=== PATIENT | male | born 1960 | race Caucasian/White ===

== ENCOUNTER → 2019-06-09 14:12 | Outpatient (CLI) | payer OTHER, SELFPAY ==
--- NOTE | 2019-06-09 14:14 | DI.MRI.S_ITS ---
PROCEDURE: MR LUMBAR SPINE WO CON INDICATIONS: low back pain TECHNIQUE: Noncontrast sagittal T1 spin echo and T2 fast echo, sagittal STIR, axial T1 and T2 fast spin echo through the lumbar spine. In cases with scoliosis, additional coronal T2 fast spin echo may be performed. COMPARISON: [facility], RG, SPINE LUMB 2 OR 3VW, 07/10/2006, 10:43. FINDINGS: Image quality: Excellent. Alignment and Curvature: There is normal bony alignment. Bone Marrow: Marrow is of normal overall signal. No acute vertebral body compression fractures. Spinal Cord: Conus medullaris terminates at the upper L1 level. Visualized cord demonstrates normal signal and size. Paraspinous Soft Tissues: No paravertebral masses. L1-L2: Congenital canal stenosis. Mild facet and ligamentum flavum hypertrophy. Mild epidural lipomatosis. Mild canal stenosis. No foraminal stenosis. L2-L3: Congenital canal stenosis. Mild disc height loss and desiccation. Mild diffuse disc bulge. Mild facet and ligamentum flavum hypertrophy. Mild epidural lipomatosis. Moderate canal stenosis. Mild bilateral foraminal stenosis. L3-L4: Congenital canal stenosis. Mild disc height loss and desiccation. Mild diffuse disc bulge. Mild facet and ligamentum flavum hypertrophy. Mild epidural lipomatosis. Severe canal stenosis. Mild foraminal stenosis bilaterally. L4-L5: Congenital canal stenosis. Mild disc height loss and desiccation. Mild diffuse disc bulge. Moderate facet and ligamentum flavum hypertrophy. Mild epidural lipomatosis. Severe canal stenosis. Mild bilateral foraminal stenosis. L5-S1: Congenital canal stenosis. Mild bilateral facet hypertrophy. Mild canal stenosis. Mild foraminal stenosis bilaterally. IMPRESSION: 1. Diffuse congenital canal stenosis with superimposed multilevel degenerative disc and facet disease, as well as ligamentum flavum hypertrophy and epidural lipomatosis. 2. Multilevel canal stenoses, worst at L3-L4 and L4-L5 where there is severe canal stenoses present. 3. Mild multilevel foraminal stenoses. Dictated by: Alexandria Steel M.D. on 06/09/2019 at 15:37 Approved by: Alexandria Steel M.D. on 06/09/2019 at 15:42
== END ==
PROVIDERS: Family Provider Family Medicine; PCP Family Medicine; Visit Provider Registered Nurse
DX: M54.17 Radiculopathy, lumbosacral region (principal); M48.061 Spinal stenosis, lumbar region without neurogenic claudication; Z98.1 Arthrodesis status
CPT/HCPCS: 72148

== ENCOUNTER → 2019-06-12 14:44 | Outpatient (CLI) | payer OTHER, SELFPAY ==
--- NOTE | 2019-06-12 14:48 | DI.RAD.S_ITS ---
PROCEDURE: XR LUMBAR SPINE 2-3V INDICATIONS: lumbosacral radiculopathy. TECHNIQUE: 3 views of the lumbar spine were acquired. COMPARISON: None. FINDINGS: Bones: 5 [id number] vertebrae are present. Vestigial ribs are present at T12. There is normal bony alignment. No vertebral body compression fractures. No suspicious bony lesions. The inferior aspect of the thoracic spinal fixation hardware is intact. Soft tissues: Overlying bowel gas pattern is normal. No suspicious soft tissue calcifications. IMPRESSION: No radiographic abnormalities. Postoperative change. Dictated by: Maida Tavarez M.D. on 06/12/2019 at 16:56 Approved by: Maida Tavarez M.D. on 06/12/2019 at 16:57
== END ==
PROVIDERS: PCP Family Medicine; Visit Provider Physical Medicine & Rehabilitation
DX: M54.17 Radiculopathy, lumbosacral region (principal); Z98.1 Arthrodesis status
CPT/HCPCS: 72100

== ENCOUNTER 2019-08-14 13:53 | Outpatient (CLI) | payer OTHER, SELFPAY ==
[2019-08-14] VITALS (8 sets, daily range): BP systolic 119–142; BP diastolic 71–87; PULSE 54–66; RESP 15–18; TEMP 36.3; O2SAT 95–99
--- NOTE | 2019-08-14 13:53 | DI.RAD.S_ITS ---
PROCEDURE: PAIN L/S TRANSFORAMINAL INJECT INDICATIONS: RADICULOPATHY FINDINGS: Fluoroscopic spot filming was performed to verify placement of spinal needles at the L4-L5 level(s), as labeled on the films. Appropriate location(s) of the needle tip(s) was confirmed by injection of iodinated contrast. IMPRESSION: Fluoroscopy for pain management. Dictated by: Rico Warren M.D. on 08/14/2019 at 17:37 Approved by: Rico Warren M.D. on 08/14/2019 at 17:37
--- NOTE | 2019-08-14 14:38 | P.PCN_ITS ---
Procedures Date/Time Date of procedure: 08/14/19 Time of procedure: 14:38 General Procedure description: PROVIDER: Oscar Gomez DO Operative Note PREOP DIAGNOSIS 1. HNP WITH RADICULAR FEATURES, 2. MULTILEVEL CENTRAL STENOSIS, POST OP DIAGNOSIS 1. HNP WITH RADICULAR FEATURES, 2. MULTILEVEL CENTRAL STENOSIS PROCEDURES 1. FLUORSCOPICALLY GUIDED CONTRAST CONTROLLED INTERLAMINAR EPIDURAL STEROID INJECTION -L4/5 PHYSICIAN: Oscar Gomez DO INDICATIONs: Cuate is referred by Dr. Dunn for treatment of Bilateral Foraminal Stenosis R>L LE symptoms. FINDINGS Multilevel Central Spinal Stenosis with Nerve Root Compression DESCRIPTION OF PROCEDURE Fluoroscopically guided, contrast-controlled L4/5 translaminar epidural steroid injection. Following review of allergy and review of potential side effects and complications, including, but not necessarily limited to, infection, allergic reaction, local tissue breakdown, temporary as well as permanent nerve injury, paralysis, stroke and possible , the patient indicated that the patient understood and agreed to proceed. An informed consent document was signed by the patient, witnessed by a nurse, and placed in the patient's chart. Additionally, other treatment options including modalities, medications, and physical therapy were reviewed with the patient. After review of previous anaesthesic history and IV conscious sedation the patient was deemed safe to proceed with todays procedure with IV conscious sedation as ASA class II designation. Safety time-out was performed to confirm patient ID, procedure to be performed and site of procedure. IV sedation was accomplished with a combination of 1mg of Versed and 50mcg was administered by the RN after DO order, titrated to patient comfort during the course of the procedure while the patient remained responsive to all verbal commands In the prone position, following sterile prep and drape of the lumbar region, the L4/5 translaminar space was identified fluoroscopically. The skin was anesthetized via a 25-gauge, 1.5-inch needle with 1% lidocaine solution. At this point, a 22-gauge short bevel spinal needle was atraumatically introduced and advanced under fluoroscopic guidance into the region of the L4/5 translaminar space. Depth was confirmed on lateral view. Radiological data, including multiple fluoroscopic views of the lumbar spine, reveal a spinal needle at the L4/5 translaminar space. Lateral views then show placement of the needle in the epidural space. Subsequent views show contrast material flowing superiorly and inferiorly in the epidural space. No vascular or intrathecal uptake is observed. At this point, using loss of resistance technique with saline and air, the epidural space was entered. This was confirmed following negative aspiration with injection of approximately 1.5 cc of Isovue 200, showing excellent epidural flow without vascular or intrathecal uptake. At this point, 1 cc of 1% lidocaine solution combined with 3cc or 20mg of dexamethasone and 6mg beta methasone was injected without incident. The patient tolerated the procedure well without signs or symptoms of complications prior to transfer to the recovery area continued monitoring without incident. The patient was then transferred to the recovery area where they were observed for an appropriate period of time after the injection. The patient reported a VAS score of 6 prior to the procedure and a post- procedure VAS of 0. Total Fluoroscopy Time: 11.8 seconds, 8.99 mGy Total Conscious Sedation Time: 24min POST OP INSTRUCTIONS The patient was provided a Pain Log to continue to record their response to the target-specific procedure prior to follow-up visit with their referring physician. Additionally, specific post-injection care instructions and a contact number to our office were provided if concerns arise regarding possible complications associated with the procedure are suspected. Oscar Gomez, Complications: none
--- NOTE | 2019-08-14 14:42 | P.PCN_ITS ---
Procedures Date/Time Date of procedure: 08/14/19 Time of procedure: 15:07 General Procedure description: PREOP DIAGNOSIS 1. FORMAINAL STENOSIS WITH LE SYMPTOMS POST OP DIAGNOSIS 1. FORMAINAL STENOSIS WITH LE SYMPTOMS PROCEDURES 1. FLUOROSCOPICALLY GUIDED CONTRAST CONTROLLED TRANSFORAMINAL EPIDURAL STEROID INJECTION - RIGHT L4/5 TFESI PHYSICIAN: Oscar Gomez DO INDICATIONS: Cuate is referred by for treatment of Foraminal Stenosis with Right LE Symptoms FINDINGS Foraminal Nerve Root Compression secondary to disc disease and facet hypertrophy DESCRIPTION OF PROCEDURE: Following review of allergy and review of potential side effects and complications, including, but not necessarily limited to, infection, allergic reaction, local tissue breakdown, stroke, temporary or permanent nerve injury, paralysis, and possible , the patient indicated that the patient understood and agreed to proceed. An informed consent document was signed by the patient, witnessed by a nurse, and placed in the patient's chart. Additionally, other treatment options including medications, modalities, and physical therapy were reviewed with the patient. After review of previous anaesthesic history and IV conscious sedation the patient was deemed safe to proceed with todays procedure with IV conscious sedation as ASA class II designation. Safety time-out was performed to confirm patient ID, procedure to be performed and site of procedure. IV sedation was accomplished with a combination of 3mg of Versed and 50mcg of Fentanyl was administered by the RN after DO order, titrated to patient comfort during the course of the procedure while the patient remained responsive to all verbal commands In the prone position following sterile prep and drape of the lumbar region, the Right L4/5 posterior neuroforamen was identified fluoroscopically. The skin was anesthetized via a 25-gauge 1.5-inch needle with 1% lidocaine solution. At this point, a 25-gauge 3.5-inch spinal needle was atraumatically introduced and advanced under fluoroscopic guidance through the posterior Right L4/5 neuroforamen to approximately the anterior aspect of the canal. Depth was confirmed on lateral view. Following negative aspiration, injection of approximately 1.5 cc of Isovue 200 under live fluoroscopy in the AP view confirmed excellent flow along the nerve root, into the epidural space without vascular or intrathecal uptake observed Radiological data, including multiple fluoroscopic views of the lumbosacral spine, reveal a spinal needle at the right L4/5 posterior neuroforamen. Subsequent views show flow of contrast material flowing superiorly and inferiorly along the nerve root confirming epidural flow. Subsequently, a test dose of 1.5 cc of 1% lidocaine solution was administered and patient was observed for two minutes for signs or symptoms of complications, including abdominal pain, shortness of breath, bilateral upper or lower extremity weakness, nausea and vomiting, prior to steroid injection. At this point, a total of 3cc or 20mg of dexamethasone and 6mg of betamethasone was injected without incident. The procedure tolerated the procedure well without signs or symptoms of complications prior to transfer to the recovery area continued monitoring without incident.The patient was then transferred to the recovery area where they were observed for an appropriate time after the injection. The patient reported a VAS score of 7 prior to the procedure and a post- procedure VAS of 0. Total Fluoroscopy Time: 20.9 seconds Total Conscious Sedation Time: 24min POST OP INSTRUCTIONS The patient was provided a Pain Log to continue to record their response to the target-specific procedure prior to follow-up visit with their referring physician. Additionally, specific post-injection care instructions and a contact number to our office were provided if concerns arise regarding possible complications associated with the procedure are suspected. Oscar Gomez, Complications: none
[2019-08-14] MEDS: MIDAZOLAM 5 MG/5 ML VIAL IV (14:48)
[2019-08-14] MEDS: fentaNYL 100 MCG/2 ML INJ 50 MCG IV (14:49)
[2019-08-14] MEDS: BETAMETHASONE 30 MG/5 ML MDV 6 MG INJ (14:55)
[2019-08-14] MEDS: BUPIVACAINE 0.25% (PF) VIAL 2 ML INJ (14:56)
[2019-08-14] MEDS: IOPAMIDOL 15 ML VIAL 3 ML INJ (14:56)
[2019-08-14] MEDS: DEXAMETHASONE 10 MG/ML VIAL 20 MG INJ (14:56)
--- NOTE | 2019-08-14 15:02 | PC.NURSE ---
ASSISTING PT OFF TABLE AND TRANSPORTING TO POST PROC AREA IN STABLE CONDITION. PASSING RN CARE OF PT OFF TO STU Carmona RN.
--- NOTE | 2019-08-14 17:25 | PC.NURSE ---
Late entry: Discharge note--patient arrived for post procedure monitoring awake and alert. VSS and O2 sat WNL on RA. Pain level 0/10. Denied any unusual numbness or tingling to lower extremities. discharge instructions reviewed with patient and spouse with good understanding. discharged via w/c to car at 1528.
== END 2019-08-14 15:28 ==
LOC: RAD 13:53
PROVIDERS: PCP Family Medicine; Visit Provider Physical Medicine & Rehabilitation
DX: M48.061 Spinal stenosis, lumbar region without neurogenic claudication (principal); M51.16 Intervertebral disc disorders with radiculopathy, lumbar region
CPT/HCPCS: 64483; 99152; J0702; J1100; J2250; J3010

== ENCOUNTER → 2023-10-16 10:36 | Outpatient (CLI) | payer OTHER, SELFPAY ==
--- NOTE | 2023-10-16 10:39 | DI.RAD.S_ITS ---
PROCEDURE: XR LUMBAR SPINE MIN 4V INDICATIONS: BACK PAIN TECHNIQUE: 5 views of the lumbar spine were acquired, including bilateral oblique views. COMPARISON: [facility], CR, XR LUMBAR SPINE 2-3V, 06/12/2019, 14:47. FINDINGS: Bones: Thoracic posterior fixation hardware is partially visualized and appears intact. 5 nonrib-bearing vertebrae are present. There is normal bony alignment. No vertebral body compression fractures. No suspicious bony lesions. There is mild intervertebral disc space narrowing, osteophytosis and facet sclerosis. Soft tissues: Overlying bowel gas pattern is normal. Scattered atheromatous calcifications are present within the abdominal aorta. Oblique images: No pars defects. IMPRESSION: 1. Mild degenerative change. 2. Mild aortic atherosclerosis. 3. No acute compression deformities. Dictated by: Maida Tavarez M.D. on 10/16/2023 at 11:27 Approved by: Maida Tavarez M.D. on 10/16/2023 at 11:29
== END ==
LOC: RAD 10:38
PROVIDERS: PCP Family Medicine; Referring Provider Anesthesiology; Visit Provider Anesthesiology
DX: M47.26 Other spondylosis with radiculopathy, lumbar region (principal); I70.0 Atherosclerosis of aorta; Z98.1 Arthrodesis status
CPT/HCPCS: 72110

== ENCOUNTER 2023-10-24 14:21 | Outpatient (CLI) | payer OTHER, SELFPAY ==
[2023-10-24] VITALS (9 sets, daily range): BP systolic 112–136; BP diastolic 56–85; PULSE 75–82; RESP 18–24; TEMP 36.2; O2SAT 95–100
--- NOTE | 2023-10-24 14:22 | DI.RAD.S_ITS ---
PROCEDURE: PAIN L/S TRANSFORAMINAL INJECT INDICATIONS: RADICULOPATHY COMPARISON: [facility], , PAIN L/S TRANSFORAMINAL INJECT, 08/14/2019, 14:51. FINDINGS: Fluoroscopic spot filming was performed to verify placement of spinal needles at the left L3-4 level(s), as labeled on the films. Appropriate location(s) of the needle tip(s) was confirmed by injection of iodinated contrast. IMPRESSION: Fluoroscopic guidance utilized for a epidural steroid injection at L3-4. Dictated by: Puneet Powell M.D. on 10/24/2023 at 17:13 Approved by: Puneet Powell M.D. on 10/24/2023 at 17:13
[2023-10-24] MEDS: MIDAZOLAM 2 MG/2 ML VIAL IV (15:08)
[2023-10-24] MEDS: DEXAMETHASONE 10 MG/ML VIAL INJ (15:10)
[2023-10-24] MEDS: iopamidoL 15 ML VIAL 3 ML INJ (15:11)
--- NOTE | 2023-10-24 16:20 | P.PCN_ITS ---
Date/Time/Diagnoses Date of procedure: 10/24/23 Time of procedure: 15:00 Procedure Notes Physician: Mariano Russo Total Fluoroscopy time (seconds): 34 Total sedation minutes: 30 Procedure in detail & Post-procedure care: Left L3-4 Transforaminal Epidural Steroid Injection Indications: Cuate is presenting for treatment of lumbar radiculopathy with low back and leg pain. Preoperative diagnosis: Lumbar radiculopathy Postoperative diagnosis: Same Focused Examination: Ax3 Mood and affect are normal Vital Signs: VSS ASA: 2 Consent: Following review of allergies and potential side effects/complications, including, but not necessarily limited to, infection, allergic reaction, local tissue breakdown, stroke, temporary or permanent nerve injury, paralysis, and possible , the patient indicated that they understood and agreed to proceed.? An informed consent document was signed by the patient, witnessed by a nurse and placed in the patient's chart.? Additionally, other treatment options including medications and physical therapy were reviewed with the patient. All questions were answered. Site was then marked. Anesthesia: After review of previous anesthetic history and IV conscious sedation, the patient was deemed safe to proceed with today's procedure with IV conscious sedation. IV sedation was accomplished with midazolam 2 mg administered by the RN after order by Dr. Russo. Sedation was titrated to patient comfort during the course of the procedure. Patient remained responsive to all verbal commands. Position: Prone Monitoring: NIBP, Pulse oximetry, 3 lead EKG Needle used: 22G 3.5 inch spinal needle Contrast: Isovue 300M Injectate: 10 mg Dexamethasone mixed with 1% lidocaine 1 ml and normal saline 1 mL Technique: The skin was prepped with chloraprep and draped in a sterile fashion. Time out was performed as per protocol. Oxygen applied via NC. Skin and subcutaneous structures of the needle entry site were infiltrated with 3mL of lidocaine 1%. Under fluoroscopic guidance, using an ipsilateral oblique view,?a 22 gauge 3.5 inch needle was advanced to the base of the L3?pedicle.? The needle was advanced to the superio-posterior aspect of the neural foramen however he was experiencing left lower extremity pain due to positioning. The pain was severe enough that he asked to abort the procedure. The needle was removed and he was assisted to the seated position. His pain resolved after this position change and he requested that we continue with the procedure. We repositioned the patient with additional support of the hips and left lower extremity. He tolerated this position well. Skin and subcutaneous structures of the needle entry site were infiltrated with 3mL of lidocaine 1%. Under fluoroscopic guidance, using an ipsilateral oblique view,?a 22 gauge 3.5 inch needle was advanced to the base of the L3?pedicle.? The needle was advanced to the superio-posterior aspect of the neural foramen under lateral view.? Oblique and AP views were rechecked. No paresthesias noted by the patient during needle placement. In AP view and utilizing real-time digital subtraction fluoroscopy, 2 ml contrast was slowly injected. Epidural spread was observed without evidence for intravascular nor intrathecal uptake. Contrast spread was seen craniocaudally. The above injectate was then administered without paresthesias and the needle was subsequently withdrawn. Band-Aids applied to injection sites. EBL: less than 1 ml Complications: None Post Procedure: Patient was taken to the recovery and monitored. The patient was provided a Pain Log to continue to record the patient's response to the target- specific procedure prior to the patient's follow-up visit with the referring physician. Patient was stable upon discharge. Detailed post procedure instructions were provided. Patient was asked to call in the event of worsening pain, fever, weakness, numbness or bladder or bowel incontinence.
== END 2023-10-24 15:47 | disposition home or self-care (01) ==
LOC: RAD 14:22
PROVIDERS: PCP Family Medicine; Referring Provider Anesthesiology; Visit Provider Anesthesiology
DX: M54.16 Radiculopathy, lumbar region (principal)
CPT/HCPCS: 64483; 99152; 99153; J1100; J2250; J3010